=== PATIENT | female | born 1980 | race Caucasian/White ===

== ENCOUNTER 2018-01-15 19:29 | Inpatient (IN) | payer OTHER ==
[~2018-01-15] VITALS: Ht 170.2 cm; Wt 93.0 kg
[~2018-01-15 19:29] MED LIST: ANAPROX275 MG PO
[2018-01-16] MEDS ORDERED: PRENATAL TABLE1 EAC1 PO (08:50)
== END 2018-01-20 11:07 | disposition home or self-care (01) | DRG 775 ==
LOC: LDR 19:29 → OB/GYN 01-16 18:29
PROC: 4A1HXCZ Monitoring of Products of Conception, Cardiac Rate, External Approach (ICD-10-PCS; 2018-01-15)
PROC: 0KQM0ZZ Repair Perineum Muscle, Open Approach (ICD-10-PCS; principal; 2018-01-18)
PROC: 10E0XZZ Delivery of Products of Conception, External Approach (ICD-10-PCS; 2018-01-18)
PROC: 4A033R1 Measurement of Arterial Saturation, Peripheral, Percutaneous Approach (ICD-10-PCS; 2018-01-18)
DX: O70.1 Second degree perineal laceration during delivery (principal); Z37.0 Single live birth; O60.14X0 Preterm labor third trimester with preterm delivery third trimester, not applicable or unspecified; O13.3 Gestational [pregnancy-induced] hypertension without significant proteinuria, third trimester; O24.410 Gestational diabetes mellitus in pregnancy, diet controlled; Z3A.36 36 weeks gestation of pregnancy

== ENCOUNTER 2018-03-22 06:30 | Day surgery (SDC) | payer OTHER ==
[~2018-03-22 06:30] MED LIST changes: +PRENATAL TABLE1 EAC1 PO
[2018-03-22] MEDS ORDERED: NAPR500T14 PO (10:11)
[2018-03-22] MEDS ORDERED: CODE1TAB37 PO (10:11)
== END 2018-03-22 13:40 | disposition home or self-care (01) ==
LOC: CIR.AMB 06:30
DX: Z30.2 Encounter for sterilization (principal); Z64.1 Problems related to multiparity